=== PATIENT | female | born 1985 | race Caucasian/White ===

== ENCOUNTER 2017-05-15 08:12 | Emergency (ER) | payer OTHER ==
[~2017-05-15] VITALS: Wt 45.0 kg
[2017-05-15] MEDS ORDERED: LORAZEPAM 2 MG INJ IV STA (08:21)
[2017-05-15] MEDS ORDERED: SOD CHLORIDE 0.9% 1,000 ML IV STA (08:21)
[2017-05-15] MEDS ORDERED: LORAZEPAM 2 MG INJ IM ONE (09:00)
[2017-05-15] MEDS ORDERED: LORAZEPAM 2 MG INJ IV ONE (09:00)
[2017-05-15 09:19] LABS: BASOPHIL # 0.1 10^3/ul (0.0-0.1); BASOPHILS % 0.5 % (0.0-2.0); EOSINOPHILS # 0.9 10^3/ul (0.0-0.5); EOSINOPHILS % 8.9 % (0.0-7.0); HEMATOCRIT 33.9 % (37.0-47.0); HEMOGLOBIN 11.3 g/dl (12.0-16.0); LYMPHOCYTES # 2.6 10^3/ul (0.8-2.9); LYMPHOCYTES % 26.6 % (15.0-51.0); MEAN CORPUSCULAR HEMOGLOBIN 28.1 pg (29.0-33.0); MEAN CORPUSCULAR HGB CONC 33.3 g/dl (32.0-37.0); MEAN CORPUSCULAR VOLUME 84.3 fl (82.0-101.0); MONOCYTE # 0.6 10^3/ul (0.3-0.9); MONOCYTES % 6.4 % (0.0-11.0); NEUTROPHIL # 5.6 10^3/ul (1.6-7.5); NEUTROPHILS % 57.2 % (39.0-77.0); PLATELET COUNT 334 10^3/UL (140-415); RED BLOOD COUNT 4.02 10^6/ul (4.20-5.40); RED CELL DISTRIBUTION WIDTH 15.6 % (11.5-14.5); WHITE BLOOD COUNT 9.8 10^3/ul (4.8-10.8)
--- NOTE | 2017-05-15 09:22 | RADRPT ---
PROCEDURE: CT Brain without contrast. CLINICAL INDICATION: Seizure. TECHNIQUE: A CT of the brain without contrast was performed utilizing axial sections from the skul l base through the vertex. The patient was scanned without intravenous contrast enhancement. Sagitta l and coronal reformatted images were obtained using the data from the axial images. Total exam DLP is 630.20 mGy-cm. CTDIvol is 45.01 mGy. One or more of the following dose reduction techniques we re used: Automated exposure control, adjustment of the mA and/or kV according to patient size, use o f iterative reconstruction technique. COMPARISON: None available FINDINGS: There is normal song-white matter differentiation. The ventricles and cisterns are normal. There is no intracranial hemorrhage or space-occupying lesion. There is no skull fracture or lytic lesion. IMPRESSION: 1. Normal noncontrast CT scan of the brain. RPTAT: QQ .Christophe Grant MD, MD Date Time Electronically viewed and signed by .Christophe Grant MD, on 05/15/2017 09:21 .R/
[2017-05-15 09:45] LABS: INR 0.93; PROTIME 12.5 Sec (12.2-14.2)
[2017-05-15 09:46] LABS: PARTIAL THROMBOPLASTIN TIME 28.2 Sec (25.0-35.0)
[2017-05-15 09:50] LABS: ANION GAP 15 (8-16); BLOOD UREA NITROGEN 13 mg/dl (7-20); CALCIUM 9.2 mg/dl (8.4-10.2); CARBON DIOXIDE 27 mmol/L (21-31); CHLORIDE 106 mmol/L (97-110); CREATININE 0.61 mg/dl (0.44-1.00); GLUCOSE 90 mg/dl (70-220); SODIUM 144 mmol/L (135-144)
[2017-05-15 09:52] LABS: ETHANOL < 10.0 mg/dl
--- NOTE | 2017-05-15 12:44 | ERD ---
ER Documentation Chief Complaint Chief Complaint PT HAD 2 WITNESSED SEIZURES WHILE IN CUSTODY, NO TRAUMA NO NEURO DEFICIT HPI Patient is a 32-year-old female with seizures who presents with seizures. Please note the history and physical exam is limited secondary to the patient's mental status at this time. The patient was brought in by ambulance and police. The patient was arrested by police and within a few minutes of being placed in the type copyist car had a seizure per the police. They were brought in by ambulance and the patient supposedly had a second seizure with the ambulance paramedics. The patient is supposed to be taking Dilantin and Xanax but is out of her medications per paramedics. I cannot obtain a history otherwise. Upon review of old medical records this is the patient's first visit to the ER. ROS All systems reviewed and are negative except as per history of present illness. Medications Home Meds Unable to Obtain Active Prescriptions or Reported Meds Allergies Allergies: Coded Allergies: Penicillins (Verified Allergy, Intermediate, RASH, 05/15/17) PMhx/Soc Medical and Surgical Hx: pt denies Surgical Hx Hx Respiratory Disorders: Yes (ASTHMA) Hx Miscellaneous Medical Probl: Yes (SEIZURE) Hx Alcohol Use: Yes Hx Substance Use: Yes Hx Tobacco Use: Yes Smoking Status: Current every day smoker FmHx Unable to obtain Physical Exam Vitals Vital Signs Date Time Temp Pulse Resp B/P Pulse Ox O2 Delivery O2 Flow Rate FiO2 05/15/17 08:17 99.1 91 21 128/68 98 Physical Exam Const: Confused Head: Atraumatic Eyes: Normal Conjunctiva ENT: Normal External Ears, Nose and Mouth. Neck: Full range of motion..~ No meningismus. Resp: Clear to auscultation bilaterally Cardio: Regular rate and rhythm, no murmurs Abd: Soft, non tender, non distended. Normal bowel sounds Skin: No petechiae or rashes Back: No midline or flank tenderness Ext: No cyanosis, or edema Neur: Awake but confused, no seizure activity at this time Result Diagram: 05/15/17 0900 05/15/17 0900 Results 24 hrs Laboratory Tests Test 05/15/17 09:00 White Blood Count 9.810^3/ul Red Blood Count 4.0210^6/ul Hemoglobin 11.3g/dl Hematocrit 33.9% Mean Corpuscular Volume 84.3fl Mean Corpuscular Hemoglobin 28.1pg Mean Corpuscular Hemoglobin Concent 33.3g/dl Red Cell Distribution Width 15.6% Platelet Count 67060^3/UL Mean Platelet Volume 9.0fl Neutrophils % 57.2% Lymphocytes % 26.6% Monocytes % 6.4% Eosinophils % 8.9% Basophils % 0.5% Nucleated Red Blood Cells % 0.0/100WBC Neutrophils # 5.610^3/ul Lymphocytes # 2.610^3/ul Monocytes # 0.610^3/ul Eosinophils # 0.910^3/ul Basophils # 0.110^3/ul Nucleated Red Blood Cells # 0.010^3/ul Prothrombin Time 12.5Sec Prothrombin Time Ratio 1.0 INR International Normalized Ratio 0.93 Activated Partial Thromboplast Time 28.2Sec Sodium Level 144mmol/L Potassium Level 4.0mmol/L Chloride Level 106mmol/L Carbon Dioxide Level 27mmol/L Anion Gap 15 Blood Urea Nitrogen 13mg/dl Creatinine 0.61mg/dl Glucose Level 90mg/dl Calcium Level 9.2mg/dl Phenytoin (Dilantin) Level < 3.0ug/ml Ethyl Alcohol Level < 10.0mg/dl Current Medications Medications (Trade) Dose Ordered Sig/Chelo Route PRN Reason Start Time Stop Time Status Last Admin Dose Admin Sodium Chloride (NS) 1,000 ml @ 1,000 mls/hr Q1H STAT IV 05/15/17 08:21 05/15/17 09:20 DC Lorazepam (Ativan) 1 mg ONCE STAT IV 05/15/17 08:21 05/15/17 08:50 DC Lorazepam (Ativan) 2 mg ONCE ONCE IM 05/15/17 09:00 05/15/17 09:00 DC Lorazepam (Ativan) 1 mg ONCE ONCE IV 05/15/17 09:00 05/15/17 09:01 DC 05/15/17 09:05 Procedures/MDM CT brain is negative per radiology. Patient is a 32-year-old female with seizures who presents with possible seizures. The patient had a seizure within minutes after being arrested by police. The patient supposedly was having seizure activity for the paramedics and had another seizure in the emergency department. However it is unclear if this was true seizure activity or if it was potentially pseudoseizure activity. Initially the police were going to stay with her because she was under arrest but then they signed off and said that their captain told them they did not need to stay with her anymore. Fairly quickly after the police left the patient got up from the bed and eloped. Our lens and [employer] prescription clerk called the police as we were instructed in because the patient eloped with an IV in place. I believe that this is most likely pseudoseizure and the patient was doing it to avoid incarceration. Her presentation did not seem consistent with true tonic-clonic seizure and she had no incontinence or tongue biting. The patient could return for any worsening symptoms. She will need to follow-up with her primary doctor within 1 week. Departure Diagnosis: Primary Impression: Seizure disorder ARINA BARKER MD May 15, 2017 12:44
== END 2017-05-15 10:15 | disposition left against medical advice (07) ==
LOC: E/R 08:12
DX: G40.909 Epilepsy, unspecified, not intractable, without status epilepticus (principal); R40.2252 Coma scale, best verbal response, oriented, at arrival to emergency department; F17.210 Nicotine dependence, cigarettes, uncomplicated; J45.909 Unspecified asthma, uncomplicated; R40.2142 Coma scale, eyes open, spontaneous, at arrival to emergency department; R40.2362 Coma scale, best motor response, obeys commands, at arrival to emergency department; R06.02 Shortness of breath
CPT/HCPCS: 70450; 80048; 80184; 80185; 80306; 85025; 85610; 85730; 96374; 99285; J2060; J7030

== ENCOUNTER 2018-01-27 00:10 | Emergency (ER) | END 2018-01-27 02:16 | disposition home or self-care (01) ==

== ENCOUNTER 2018-09-24 09:58 | Emergency (ER) | payer OTHER ==
[~2018-09-24] VITALS: Ht 167.6 cm; Wt 52.0 kg
[2018-09-24] MEDS ORDERED: LORAZEPAM 2 MG INJ IV STA (10:05)
[2018-09-24 10:07] VITALS: BP 133/97; PULSE 112; RESP 18; Ht 167.6 cm; Wt 52.0 kg
[2018-09-24] MEDS ORDERED: PHENYTOIN 1,000 MG in SOD CHLORIDE 0.9% 80 ML IVPB STA (11:57)
--- NOTE | 2018-09-24 12:25 | ERD ---
ER Documentation Chief Complaint Chief Complaint Seizure hx of seizures now aox4 HPI 33-year-old female with known seizure disorder on Dilantin and Keppra who has been not taking her Dilantin for 3 days. The patient is in senior care. She states that she has had some viral process with nausea and vomiting over this timeframe. Patient had a witnessed generalized tonic-clonic seizure with spontaneous resolution. Patient does have recent head trauma within the last week with negative CT imaging and workup on an outpatient basis. She denies any headache or vision changes and states that her seizure today is consistent with breakthrough seizures in the past. ROS All systems reviewed and are negative except as per history of present illness. Medications Home Meds Active Scripts Ondansetron (Ondansetron Odt) 4 Mg Tab.rapdis, 4 MG PO Q6H PRN for NAUSEA AND/OR VOMITING, #10 TAB Prov:MARY JOHNSON MD 09/24/18 Allergies Allergies: Coded Allergies: Penicillins (Verified Allergy, Intermediate, RASH, 05/15/17) PMhx/Soc History of Surgery: No Anesthesia Reaction: No Hx Neurological Disorder: No Hx Respiratory Disorders: Yes (ASTHMA) Hx Cardiac Disorders: No Hx Psychiatric Problems: No Hx Miscellaneous Medical Probl: Yes (SEIZURE) Hx Alcohol Use: Yes Hx Substance Use: Yes Hx Tobacco Use: Yes FmHx Family History: No diabetes Physical Exam Vitals Vital Signs Date Temp Pulse Resp B/P (MAP) Pulse Ox O2 O2 Flow FiO2 Time Delivery Rate 09/24/18 98.3 112 18 133/97 100 10:07 (109) Physical Exam General: Well developed, well nourished, no acute distress Head: Normocephalic, atraumatic. Eyes: Pupils equally reactive, EOM intact ENT: Moist mucous membranes Neck: Supple, no lymphadenopathy Respiratory: Lungs clear bilaterally, no distress Cardiovascular: RRR, no murmurs, rubs, or gallops Abdominal: Soft, non-tender, non-distended, no peritoneal signs : Deferred MSK: No edema, no unilateral swelling, 5/5 strength Neurologic: Alert and oriented, moving all extremities, normal speech, no focal weakness, no cerebellar signs Skin: No rash Psych: Normal mood Result Diagram: 09/24/18 1108 Results 24 hrs Laboratory Tests Test 09/24/18 10:30 09/24/18 10:32 09/24/18 11:08 09/24/18 11:30 Bedside Urine pH (LAB) 6.5 Bedside Urine Protein Trace (LAB) Bedside Urine Glucose Negative (UA) Bedside Urine Ketones Trace (LAB) Bedside Urine Blood Negative Bedside Urine Nitrite Negative (LAB) Bedside Urine Negative Leukocyte Esterase (L POC Beta HCG, NEGATIVE Qualitative Sodium Level 142 mmol/L Potassium Level 4.2 mmol/L Chloride Level 107 mmol/L Carbon Dioxide Level 28 mmol/L Anion Gap 7 Blood Urea Nitrogen 22 mg/dl Creatinine 0.55 mg/dl Est Glomerular Filtrat > 60 mL/min Rate mL/min Glucose Level 71 mg/dl Calcium Level 9.0 mg/dl Serum HCG, Qualitative NEGATIVE Phenytoin (Dilantin) 6.5 ug/ml Level Bedside Glucose 98 mg/dL Current Medications Medications Dose Sig/Chelo Start Time Status Last (Trade) Ordered Route PRN Stop Time Admin Dose Reason Admin Lorazepam 1 mg ONCE STAT 09/24/18 DC 09/24/18 (Ativan) IV 10:05 09/24/18 11:14 10:07 Phenytoin 100 ml @ ONCE STAT 09/24/18 DC 1000 mg/ 200 mls/hr IVPB 11:57 09/24/18 Sodium 12:26 Chloride Procedures/MDM LAB INTERPRETATION: I reviewed the laboratory testing and it shows some therapeutic Dilantin level MEDICAL DECISION MAKING: Patient had a likely breakthrough seizure secondary to subtherapeutic Dilantin level. While the patient had recent head trauma she had a negative CT of her head. The patient exhibits no signs or symptoms concerning for intracranial process. Given subtherapeutic Dilantin level I believe we can avoid unnecessary radiation in this patient. ER COURSE: * Subtherapeutic Dilantin level noted. The patient was loaded with Dilantin here in the emergency room setting and tolerated well * Seizure precautions were initiated patient was given small dose of Ativan. * The patient does get her Dilantin at senior care and can be safely discharged with a prescription for Zofran so she can tolerate the medication. CONSULTATION: None DISPOSITION PLAN: The patient does not have an identifiable emergent medical condition that warrants inpatient hospitalization at this time. The patient is deemed safe for discharge with outpatient follow-up. We discussed follow up with the patient's primary care doctor within 24 to 48 hours as needed. We also discussed return to the emergency room for worsening symptoms or worsening condition. Outpatient referral: Primary neurologist as needed Discharge Medications: Zofran Departure Diagnosis: Primary Impression: Seizure disorder Additional Impression: Subtherapeutic serum dilantin level Condition: Stable MARY JOHNSON MD Sep 24, 2018 12:25
[2018-09-24] MEDS ORDERED: ONDA4TAB14 PO (12:35)
== END 2018-09-24 14:00 ==
LOC: E/R 09:58
DX: G40.909 Epilepsy, unspecified, not intractable, without status epilepticus (principal); J45.909 Unspecified asthma, uncomplicated; R89.2 Abnormal level of other drugs, medicaments and biological substances in specimens from other organs, systems and tissues; R40.2142 Coma scale, eyes open, spontaneous, at arrival to emergency department; R40.2252 Coma scale, best verbal response, oriented, at arrival to emergency department; R40.2362 Coma scale, best motor response, obeys commands, at arrival to emergency department; Z87.891 Personal history of nicotine dependence
CPT/HCPCS: 80048; 80185; 81003; 81025; 82962; 84703; J1165; J2060; 36415; 96374; 96375